=== PATIENT | female | born 1940 | race Caucasian/White ===

== ENCOUNTER → 2020-05-16 | Outpatient (CLI) | payer MEDICARE ==
[~2020-05-16] MED LIST: ACETAMINOPHEN325 M1 PO; AMLODIPINE BESYL5 MG PO; AMLODIPINE-BEN1 EAC3 PO; ASPIR 8181 MG PO; AUGMENTIN PO; AVELOX 400 MG400 MG PO; BENAZEPRIL HCL20 MG PO; BUSPAR 5 MG TABL5 M1 PO; BUSPAR PO; CEFDINIR300 MG PO; CEFPODOXIME PR200 M1 PO; CHOLESTEROL MED; COMBIVENT INH; COUMADIN 5 MG TA5 M1 PO; COUMADIN7.5 MG PO; CRESTOR10 MG PO; DUONEB 2.5-0.5 M3 ML INH; FLONASE 0.05%50 MCG NASAL; GUANFACINE HCL1 MG PO; HYDROCHLOROTHIA25 M1 PO; HYDROCODON-ACE1 EAC7 PO; HYDROCODONE-AP1 EAC6 PO; IMODIUM A-D2 M1 PO; IPRATROPIUM BROMIDE; KLOR-CON 1010 MEQ PO; LASIX 20 MG TAB20 MG PO; LEVAQUIN 500 M500 M1 PO; LEVAQUIN 500 M500 M2 PO; LOPRESSOR 50 MG50 M1 PO; MUCINEX600 MG PO; OSELB75 PO; PREDNISONE 10 M10 M1; PREDNISONE 10 M10 M1 PO; PREDNISONE 10 M10 MG PO; PROTONIX 20 MG20 M1 PO; PROTONIX40 M2 PO; SINGULAIR 10 MG10 M1 PO; SYMBICORT160 MCG/4. INH; SYMBICORT80 MCG/4.5 INH; VITAMIN D22000 UNIT PO; XOPENEX HF1 UDINHALE IH; XOPENEX HFA15 GM; ZOCOR 20 MG TAB20 M1 PO
== END ==
LOC: M.ULTRA 05-05 12:24
PROVIDERS: ATTEND Nurse Practitioner Family
DX: R92.1 Mammographic calcification found on diagnostic imaging of breast (principal); N64.4 Mastodynia

== ENCOUNTER → 2020-07-11 | Outpatient (CLI) | payer MEDICARE | LOC: M.ULTRA 10:00 | PROVIDERS: ATTEND Nurse Practitioner Family | DX: N64.52 Nipple discharge (principal) ==

== ENCOUNTER → 2021-05-03 | Outpatient (CLI) | payer MEDICARE | LOC: M.RAD 10:00 | PROVIDERS: ATTEND Nurse Practitioner Family | DX: Z12.31 Encounter for screening mammogram for malignant neoplasm of breast (principal) ==